=== PATIENT | male | born 1945 | race Caucasian/White ===

== ENCOUNTER 2022-08-01 07:07 | Outpatient (CLI) | payer OTHER | END 2022-08-01 07:08 | disposition home or self-care (01) | LOC: CSHMRI 07:07 | PROVIDERS: ATTEND Psychiatry & Neurology Neurology | DX: G20 Parkinson's disease (principal); G31.9 Degenerative disease of nervous system, unspecified; I67.9 Cerebrovascular disease, unspecified | CPT/HCPCS: 70551 ==